=== PATIENT | male | born 1965 | race Caucasian/White ===

== ENCOUNTER 2018-02-05 16:38 | Emergency (ER) | payer OTHER, SELFPAY ==
[2018-02-05 16:39] VITALS: BP 188/100; PULSE 77; RESP 16; TEMP 36.6; O2SAT 97; BMI 34.3
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
[2018-02-05] MEDS: Diphth,Pertuss(Acell),Tet Vac 0.5 ML Vial IM (17:05)
--- NOTE | 2018-02-05 17:11 | CT_ITS ---
STUDY: CT BRAIN WITHOUT CONTRAST REASON FOR EXAM: Male, 52 years old. Head injury RADIATION DOSAGE (If Supplied By Facility): CTDIvol = ( 44.99 ) mGy, DLP = ( 829.85 ) mGycm TECHNIQUE: Transaxial CT imaging of the brain was performed without administration of intravenous contrast material. Individualized dose optimization techniques were used for this CT. COMPARISON: None. FINDINGS: There is soft tissue swelling in the right parietal region. The osseous structures are unremarkable. Normal size ventricles and extra-axial spaces for the patient's age. The white matter tracts are unremarkable. The basal ganglia and thalami are unremarkable. No abnormalities are seen in the brainstem. The cerebellum is unremarkable. There is no intracranial hemorrhage. There are no findings of acute ischemia. The visualized sinuses are unremarkable. CT/Brain/Head without Contrast IMPRESSION: No acute intracranial abnormalities. There is a scalp hematoma in the right parietal region without underlying fracture. Electronically Signed: Yocasta Christy MD at 17:50 EDT Tel Direct: [phone], Service support ,
== END 2018-02-05 17:56 | disposition home or self-care (01) ==
PROVIDERS: Emergency Provider Emergency Medicine
DX: S00.01XA Abrasion of scalp, initial encounter (principal); Z23 Encounter for immunization; R40.2410 Glasgow coma scale score 13-15, unspecified time; V28.4XXA Motorcycle driver injured in noncollision transport accident in traffic accident, initial encounter; Y93.9 Activity, unspecified; Y92.9 Unspecified place or not applicable
CPT/HCPCS: 70450; 90715; 99282